=== PATIENT | male | born 1945 | race Caucasian/White ===

== ENCOUNTER → 2016-08-11 | Outpatient (CLI) | payer MEDICARE, BC | END | disposition home or self-care (01) | LOC: PCVCIMAG 11:25 | PROVIDERS: ATTEND Internal Medicine Cardiovascular Disease | DX: R19.07 Generalized intra-abdominal and pelvic swelling, mass and lump (principal); I25.10 Atherosclerotic heart disease of native coronary artery without angina pectoris; I10 Essential (primary) hypertension; E78.00 Pure hypercholesterolemia, unspecified; Z82.49 Family history of ischemic heart disease and other diseases of the circulatory system | CPT/HCPCS: 93005; 93978; G0463 ==

== ENCOUNTER → 2018-02-09 | Outpatient (CLI) | payer MEDICARE, BC | END | disposition home or self-care (01) | LOC: PCVCCLINIC 10:00 | PROVIDERS: ATTEND Internal Medicine Cardiovascular Disease | DX: I25.10 Atherosclerotic heart disease of native coronary artery without angina pectoris (principal); E78.00 Pure hypercholesterolemia, unspecified; I10 Essential (primary) hypertension; R93.1 Abnormal findings on diagnostic imaging of heart and coronary circulation; R74.8 Abnormal levels of other serum enzymes; R09.89 Other specified symptoms and signs involving the circulatory and respiratory systems; N52.9 Male erectile dysfunction, unspecified; M10.9 Gout, unspecified; M19.90 Unspecified osteoarthritis, unspecified site; F32.9 Major depressive disorder, single episode, unspecified; Z88.1 Allergy status to other antibiotic agents | CPT/HCPCS: 80061; 93005; G0463 ==

== ENCOUNTER → 2018-04-02 | Outpatient (CLI) | payer MEDICARE, BC | END | disposition home or self-care (01) | LOC: PCVCCLINIC 10:08 | PROVIDERS: ATTEND Internal Medicine Cardiovascular Disease | DX: E78.00 Pure hypercholesterolemia, unspecified (principal); E78.5 Hyperlipidemia, unspecified; I25.10 Atherosclerotic heart disease of native coronary artery without angina pectoris; I10 Essential (primary) hypertension | CPT/HCPCS: 36415; 80061 ==

== ENCOUNTER → 2018-04-04 | Outpatient (CLI) | payer MEDICARE, BC ==
--- NOTE | 2018-04-04 15:10 | PCVCIMAG ---
APPROVED REPORT Indications Bruit Doppler Spectral Velocity Analysis PSV / EDVPSV / EDV ECA (R) 124 / 8 cm/sECA (L) 108 / 10 cm/s dICA (R) 82 / 24 cm/sdICA (L) 77 / 16 cm/s Bryce (R) 75 / 17 cm/smICA (L) 73 / 16 cm/s pICA (R) 56 / 12 cm/spICA (L) 76 / 14 cm/s Bulb (R) 47 / 9 cm/sBulb (L) 71 / 14 cm/s dCCA (R) 98 / 13 cm/sdCCA (L) 98 / 14 cm/s mCCA (R) 92 / 12 cm/smCCA (L) 111 / 11 cm/s Vert (R) 39 / 6 cm/sVert (L) 41 / 8 cm/s ICA/CCA 0.84ICA/CCA 0.79 Basic Measurements Blood Pressure: Pulses: Right Left RightLeft Brachial(Sitting) 134/48fdTw699/64mmHgTemporal Real Time B-Mode Imaging Vert. (R)AntegradeVert. (L)Antegrade Findings The right carotid bulb has mild plaque. The right proximal internal carotid artery shows no significant stenosis. The right common carotid artery shows no significant stenosis. The right external carotid artery shows no significant stenosis. The left carotid bulb has mild plaque. The left proximal internal carotid artery shows no significant stenosis. The left common carotid artery shows no significant stenosis. The left external carotid artery shows no significant stenosis. Conclusion 1. Mild bilateral plaquing without significant stenosis 2. Antegrade vertebral flow
== END | disposition home or self-care (01) ==
LOC: PCVCIMAG 13:00
PROVIDERS: ATTEND Internal Medicine Cardiovascular Disease
DX: R09.89 Other specified symptoms and signs involving the circulatory and respiratory systems (principal)
CPT/HCPCS: 93880

== ENCOUNTER → 2018-05-01 | Outpatient (CLI) | payer MEDICARE, BC ==
--- NOTE | 2018-05-01 15:33 | PCVCIMAG ---
APPROVED REPORT Study performed: 05/01/2018 13:33:11 Exam: Stress Echocardiogram Indication: Hyperlipidemia, Hypertension Patient Location: Echo lab Stress Nurse: Mary Hernandez RN Status: routine Ht: 5 ft 10 in HR: 115 bpm BP: 170/80 mmHg Rhythm: NSR, Tachycardia Procedure The patient underwent an Exercise Stress Test using the Pb Protocol. Blood pressure, heart rate, and EKG were monitored. An Echocardiogram was performed by library circulation technician in four stages in quad fashion. At peak stress, four selected images were obtained and placed side by side with resting images for comparison. Stress Test Details Stress Test: Exercise stress testing was performed using a Pb protocol. HR Resting HR: 115 bpmMax Heart Rate (APMHR): 149 bpm Max HR Achieved: 146 bpmTarget HR (85% APMHR): 126 bpm % of APMHR: 97 Recovery HR: 117 bpm HR response to stress: Normal HR response to stress BP Resting BP: 170/80 mmHg Max BP: 148/80 mmHg Recovery BP: 148/80 mmHg BP response to stress: Normal blood pressure response to stress. ECG Resting ECG: Sinus tachycardia Stress ECG: Sinus tachycardia Recovery ECG: Sinus Rhythm Clinical Reason for Termination: Maximal effort Exercise duration: 5 min sec Highest Stage Achieved: Stage 2: 2.5 mph at 12% grade. Exercise capacity: 7.00 METs Overall Exercise Capacity for Age: Poor Pre-Stress Echo The resting Echocardiogram showed normal left ventricular contractility with an estimated Ejection Fraction of about 55-60%. Normal wall motion in all segments on baseline images. Post-Stress Echo The stress Echocardiogram showed normal left ventricular contractility with an estimated Ejection Fraction of about 60-65%. Normal augmentation of wall motion in all segments on post stress images. Clinical No clinical or ECG evidence for ischemia. Conclusion Clinical Response: Non-ischemic Exercise Capacity: Below Average Stress ECG Response: Non-ischemic Stress Echo Images: Non-ischemic The left ventricle is normal in size and wall thickness in both the rest and stress images. Mild Sclerosis of the Aortic valve. Moderate mitral annular calcification. Other Information Study Quality: Technically Difficult <Conclusion> The left ventricle is normal in size and wall thickness in both the rest and stress images. Mild Sclerosis of the Aortic valve. Moderate mitral annular calcification.
== END | disposition home or self-care (01) ==
LOC: PCVCIMAG 13:26
PROVIDERS: ATTEND Internal Medicine Cardiovascular Disease
DX: I10 Essential (primary) hypertension (principal); E78.5 Hyperlipidemia, unspecified; R06.02 Shortness of breath; I25.10 Atherosclerotic heart disease of native coronary artery without angina pectoris; E78.00 Pure hypercholesterolemia, unspecified; E78.2 Mixed hyperlipidemia; F32.0 Major depressive disorder, single episode, mild; R41.3 Other amnesia
CPT/HCPCS: 93325; 93351

== ENCOUNTER → 2019-02-05 | Outpatient (CLI) | payer MEDICARE, BC | END | disposition home or self-care (01) | LOC: PCVCCLINIC 15:21 | PROVIDERS: ATTEND Internal Medicine Cardiovascular Disease | DX: I25.10 Atherosclerotic heart disease of native coronary artery without angina pectoris (principal); E78.00 Pure hypercholesterolemia, unspecified; I10 Essential (primary) hypertension; I35.8 Other nonrheumatic aortic valve disorders; R74.8 Abnormal levels of other serum enzymes; M19.90 Unspecified osteoarthritis, unspecified site; M10.9 Gout, unspecified; Z88.1 Allergy status to other antibiotic agents; Z88.8 Allergy status to other drugs, medicaments and biological substances; Z79.899 Other long term (current) drug therapy | CPT/HCPCS: 36415; 80061; 93005; G0463 ==

== ENCOUNTER → 2019-02-12 | Outpatient (CLI) | payer MEDICARE, BC ==
--- NOTE | 2019-02-12 17:15 | PCVCIMAG ---
APPROVED REPORT Study performed: 02/12/2019 13:03:47 EXAM: Comprehensive 2D, Doppler, and color-flow Echocardiogram Patient Location: Echo lab Room #: [id number]: routine BSA: 2.35 HR: 101 bpmBP: 82/60 mmHg Rhythm: NSR Other Information Study Quality: Good Risk Factors: Cardiac Risk Factors: HTN, Hyperlipidemia Indications Aortic Valve Disease Murmur CAD 2D Dimensions IVSd: 11.14 (7-11mm)LVOT Diam: 19.69 (18-24mm) LVDd: 41.16 mm PWd: 8.88 (7-11mm) LVDs: 27.19 (25-40mm) Left Atrium: 36.35 (27-40mm) Aortic Root: 20.89 mm LV Single Plane 4CH: 63.00 % LV Single Plane 2CH: 48.81 % Biplane EF: 56.0 % Volumes Left Atrial Volume (Systole) Single Plane 4CH: 115.67 mLSingle Plane 2CH: 74.40 mL Biplane LA Volume: 107.00 mLLA ESV Index: 45.00 mL/m2 Aortic Valve AoV Peak Alvarez.: 2.66 m/s AO Peak Gr.: 28.68 mmHgLVOT Max P.29 mmHg AO Mean Gr.: 17.61 mmHgLVOT Mean P.36 mmHg AO V2 Mean: 2.04 m/sLVOT Max V: 1.14 m/s AO V2 VTI: 47.88 cmLVOT Mean V: 0.89 m/s DAPHNIE (VTI): 1.38 [id number] V1 VTI: 21.66 cm DAPHNIE Vmax: 1.30 cm2 SV (LVOT): 65.91 mL Mitral Valve MV Peak Gr.: 15.31 mmHg MV Mean Gr.: 5.43 mmHgE/A Ratio: 0.5 MV Decel. Time: 215.01 ms MV E Max Alvarez.: 0.97 m/s MV A Alvarez.: 1.78 m/s MV Max Alvarez.: 1.96 m/s MV Mean Alvarez.: 1.06 m/s MV VTI: 312.13 mm MVA VTI: 211.15 mm2 MV PHT: 74.97 ms MVA (PHT): 2.81 cm2 TDI E/Lateral E': 16.17E/Medial E': 19.40 Medial E' Alvarez.: 0.05 m/s Lateral E' Alvarez.: 0.06 m/s Pulmonary Valve PV Peak Alvarez.: 1.05 m/sPV Peak Gr.: 4.45 mmHg Pulmonary Vein P Vein S: 0.57 m/sP Vein A: 0.30 m/s P Vein D: 0.28 m/sP Vein A Dur.: 117.6 msec P Vein S/D Ratio: 2.04 Tricuspid Valve TV Vmax: 0.48 m/s Left Ventricle The left ventricle is normal size. There is normal LV segmental wall motion. There is normal left ventricular wall thickness. Left ventricular systolic function is normal. LVEF is 55-60%. Grade I - abnormal relaxation pattern. Findings suggest the left atrial pressure is elevated. Right Ventricle The right ventricle is normal size. The right ventricular systolic function is normal. Atria Left atrium is moderately dilated. The right atrium size is normal. Aortic Valve Aortic valve is trileaflet. Moderate aortic valve sclerosis with moderately reduced leaflet excursion. No aortic regurgitation is present. There is moderate valvular aortic stenosis. Calculated aortic valve area is 1.3-1.4 cm2 with maximum pressure gradient of 28 mmHg and mean pressure gradient of 18 mmHg. Mitral Valve Moderate mitral annular calcificationis seen. Posterior leaflet calcification is seen. The anterior leaflet opens well. There is no mitral valve regurgitation noted. The anterior leaflet is pliable and mobile while the posterior leaflet is calcified and immobile. No significant mitral valve stenosis. Tricuspid Valve The tricuspid valve is normal in structure. There is no tricuspid valve regurgitation noted. Pulmonic Valve The pulmonary valve is normal in structure. There is no pulmonic valvular regurgitation. Great Vessels The aortic root is normal in size. Aortic arch is normal in caliber Ascending aorta is not well visualized.. IVC is not well visualized. Pericardium There is no pericardial effusion. There is no pleural effusion. <Conclusion> The left ventricle is normal size. LVEF is 55-60%. Grade I - abnormal relaxation pattern. Findings suggest the left atrial pressure is elevated. The right ventricle is normal size. Left atrium is moderately dilated. Aortic valve is trileaflet. Moderate aortic valve sclerosis with moderately reduced leaflet excursion. There is moderate valvular aortic stenosis. Calculated aortic valve area is 1.3-1.4 cm2 with maximum pressure gradient of 28 mmHg and mean pressure gradient of 18 mmHg. Moderate mitral annular calcificationis seen. Posterior leaflet calcification is seen. The anterior leaflet opens well. There is no mitral valve regurgitation noted. The anterior leaflet is pliable and mobile while the posterior leaflet is calcified and immobile. No significant mitral valve stenosis. There is no tricuspid valve regurgitation noted. The aortic root is normal in size. There is no pericardial effusion.
== END | disposition home or self-care (01) ==
LOC: PCVCIMAG 13:00
PROVIDERS: ATTEND Internal Medicine Cardiovascular Disease
DX: I08.0 Rheumatic disorders of both mitral and aortic valves (principal); I25.10 Atherosclerotic heart disease of native coronary artery without angina pectoris; R01.1 Cardiac murmur, unspecified; E78.00 Pure hypercholesterolemia, unspecified; I10 Essential (primary) hypertension; F41.9 Anxiety disorder, unspecified; M10.9 Gout, unspecified
CPT/HCPCS: 93306